=== PATIENT | female | born 1955 | race African-American/Black ===

== ENCOUNTER 2017-11-20 12:51 | Emergency (ER) | payer MEDICAID ==
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
--- NOTE | 2017-11-20 14:18 | RAD ---
Indication: Chest pain, shortness of breath. Single frontal view of the chest performed at 1353 hours was reviewed. No prior study is available for comparison. No mediastinal shift is noted. Heart is of normal size and configuration. Lung mclaughlin appear clear. IMPRESSION: NO ACTIVE CARDIOPULMONARY DISEASE IS NOTED.
[2017-11-20 14:45] LABS: ABS Basophils 0.1 10^3/ul (0-0.2); ABS Eosinophils 0.1 10^3/ul (0-0.6); ABS Lymphocytes 2.2 10^3/ul (1.0-4.8); ABS Monocytes 0.4 10^3/ul (0-0.8); ABS Neutrophils 2.7 10^3/ul (1.5-7.7); ABS Nucleated RBC 0 10^3/ul; Eosinophil % 2.4 % (0-6); Hematocrit 41 % (35-47); Hemoglobin 13.4 g/dl (12.0-16.0); Lymphocyte % 39.4 % (25-47); Mean Corpuscular HGB Conc 33 g/dl (31-36); Mean Corpuscular Hemoglobin 29 pg (27-31); Mean Corpuscular Volume 88 fL (80-97); Mean Platelet Volume 9.7 um3 (7.4-10.4); Nucleated Red Blood Cells % 0.1; Platelet Count 243 10^3/ul (150-450); Red Blood Count 4.65 10^6/ul (4.00-5.40); Red Cell Distribution Width 15 % (10.5-15); White Blood Count 5.5 10^3/ul (3.5-10.8)
[2017-11-20 15:01] LABS: INR 0.94 (0.77-1.02)
--- NOTE | 2017-11-20 16:00 | CONSULT ---
Subjective Date of Service: 11/20/17 Interval History: The patient developed midsternal chest pain about 11:30 AM today while watching TV and eating pancakes and sausage. SHe had SOB, sweats, and a feeling she couldn't breath. She never had this pain before. The pain slowly subsided but is still present to some degree. She had a negative cardiac cath in 2016. She uses O2 at home for asthma attacks, about once every few days. She only has a large, non-portable tank which she did not bring to [place]. She did bring her albuterol MDI. She also has a nebulizer at home. Family History: Findings - unremarkable. Social History: Findings - Never smoked. SDM is her son. Lives alone in [facility]. No alcohol use. Past Medical History: Findings - L mastectomy in 1999, chemo, 12 yrs of tamoxifen. x 1. Review of Systems - Measurements Intake and Output: Intake and Output Last 24 Hours 11/18/17 11/19/17 11/20/17 11/21/17 06:59 06:59 06:59 06:59 Weight 260 lb - Review of Systems Constitutional Symptoms: Negative: Weight Gain, Weight Loss, Weakness, Fatigue, Fever, Night Sweats, Unexplained Falls, Other Dermatology: Positive: Normal HEENT: Positive: Normal Eyes: Positive: Normal Thyroid: Positive: Normal Pulmonary: Positive: Asthma Cardiology: Positive: Chest Pain Gastroenterology: Positive: Normal Genital - Urinary: Positive: Normal Musculoskeletal: Positive: Joint Pain Endocrinology: Positive: Normal Hematologic/Lymphatic: Negative: Anemia, Easy Brusing, Hx Leukemia, Hx Lymphoma, Use of Anticoagulant, Use of Antiplatelet Drugs, Other Neurology: Positive: Normal Psychiatry: Positive: Normal Allergic/Immunologic: Negative: Hx Anaphylaxis, Hx Angioedema, Hx Environmental, Hx Seasonal, Athsma, Hx HIV, Immunocompromise, Swollen Glands LymphNodes, Other Objective Vital Signs - 8 hr 11/20/17 13:02 Temperature 97.1 F Pulse Rate 71 Respiratory 16 Rate Blood Pressure 130/72 (mmHg) O2 Sat by Pulse 99 Oximetry Oxygen Devices in Use Now: None Appearance: Alert, sitting up on ED stretcher. In good spirits. Looks comfortable. Eyes: No Scleral Icterus Neck: NL Appearance and Movements; NL JVP, No Thyroid Enlargement, Masses Respiratory: Symmetrical Chest Expansion and Respiratory Effort, Clear to Auscultation, Clear to Percussion, Clear to Palpation Cardiovascular: NL Sounds; No Murmurs; No JVD, RRR, No Edema, - - mod midsternal chest wall tenderness, reproduces her chest pain, winces. Extremities: No Edema, No Clubbing, Cyanosis, - - no calf tenderness Skin: No Rash or Ulcers, No Nodules or Sclerosis, - Neurological: Alert and Oriented x 3, NL Sensation Result Diagrams: 11/20/17 14:34 11/20/17 14:34 Assessment/Plan - Billing Plan By Medical Problem: 1. Chest pain. Clinically this is chest wall pain. Neg troponin, ECG, and cardiac cath 2 yrs ago noted. Pt reassured. 2. Asthma. Stable, not wheezing at present. O2 sat on RA 94-100%. She is returning to [facility] tomorrow. I encouraged her to plan ahead on her next trip away from home by calling her O2 supplier and asking for options for getting O2 on her trip. 3. Seizures. Continue levetiracetam. 4. Morbid obesity. BMI 42.0. VTE PPX: Diet: Code Status: Admission Status and Rationale:
[2017-11-20 16:56] VITALS: BP 144/76
== END 2017-11-20 16:58 | disposition home or self-care (01) ==
LOC: ED 12:51
DX: R07.9 Chest pain, unspecified (principal); R06.00 Dyspnea, unspecified; R09.89 Other specified symptoms and signs involving the circulatory and respiratory systems; J45.909 Unspecified asthma, uncomplicated; R56.9 Unspecified convulsions; E66.01 Morbid (severe) obesity due to excess calories; Z68.41 Body mass index [BMI] 40.0-44.9, adult; Z99.81 Dependence on supplemental oxygen; Z79.82 Long term (current) use of aspirin; Z79.899 Other long term (current) drug therapy
CPT/HCPCS: 36415; 71045; 80053; 80177; 82550; 82553; 83605; 83735; 83880; 84484; 85025; 85379; 85610; 85730; 93005; 99283